=== PATIENT | female | born 2000 | race Caucasian/White ===

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

== ENCOUNTER 2018-09-24 21:02 | Emergency (ER) | payer OTHER ==
[~2018-09-24] VITALS: Ht 185.4 cm; Wt 127.0 kg
[~2018-09-24 21:02] MED LIST changes: +AMETHYST1 EACH PO; +Ativan0.5 MG PO; +Augmentin 875-1 EACH PO; +Citalopram HBr10 MG PO; +ONDA4ODT MM; +Zoloft25 MG PO; +Zoloft50 MG PO
[2018-09-24] MEDS ORDERED: ARIP10 PO (22:57)
[2018-09-24] MEDS ORDERED: OMEPRAZOLE20 MG PO (22:57)
[2018-09-24] MEDS ORDERED: SERT50 PO (22:57)
[2018-09-24] MEDS ORDERED: AMETHYST 90-201 EACH PO (22:58)
[2018-09-24 23:45] LABS: Source, Urine Clean Catch
[2018-09-24 23:47] LABS: Bilirubin, Urine Neg (Neg); Blood, Urine 1+ (Neg); Glucose Qualitative, Urine Neg (Neg); Ketones, Urine Neg (Neg); Leukocyte Esterase, Urine Neg (Neg); Nitrite, Urine Neg (Neg); Protein, Urine Neg (Neg); Urobilinogen, Urine NORM (Normal)
[2018-09-24 23:48] LABS: Appearance, Urine Clear (Clear); Color, Urine Yellow (P-Yellow)
[2018-09-24 23:53] LABS: Bacteria Mod /hpf; Red Blood Cells, Urine 0-2 /hpf (0-2); Squamous Epithelial Cells Not Seen /hpf (Few); White Blood Cells, Urine 0-2 /hpf (0-5)
[2018-09-25] MEDS ORDERED: Flagyl500 MG PO (00:51)
[2018-09-25] MEDS ORDERED: Vibramycin100 MG PO (00:51)
== END 2018-09-25 01:08 | disposition home or self-care (01) ==
LOC: ER 21:02
PROVIDERS: Physician Assistant
DX: N73.9 Female pelvic inflammatory disease, unspecified (principal); N94.10 Unspecified dyspareunia
CPT/HCPCS: 81001; 81025; 87086; 96372; 99284-25; A9270-GY; J0696

== ENCOUNTER 2018-09-28 21:15 | Emergency (ER) | payer OTHER ==
[~2018-09-28] VITALS: Ht 185.4 cm; Wt 127.0 kg
[~2018-09-28 21:15] MED LIST changes: +AMETHYST 90-201 EACH PO; +ARIP10 PO; +Flagyl500 MG PO; +OMEPRAZOLE20 MG PO; +SERT50 PO; +Vibramycin100 MG PO
[2018-09-28 22:29] LABS: Source, Urine Clean Catch
[2018-09-28 22:31] LABS: Bilirubin, Urine Neg (Neg); Blood, Urine 2+ (Neg); Glucose Qualitative, Urine Neg (Neg); Ketones, Urine 1+ (Neg); Leukocyte Esterase, Urine 2+ (Neg); Nitrite, Urine Neg (Neg); Protein, Urine 1+ (Neg); Specific Gravity, Urine 1.025 (1.003-1.022); Urobilinogen, Urine NORM (Normal)
[2018-09-28 22:46] LABS: Appearance, Urine Clear (Clear); Color, Urine Yellow (P-Yellow)
[2018-09-28 22:47] LABS: Bacteria Few /hpf; Calcium Oxalate Crystals Few /hpf; Mucus Light (0-Heavy); Squamous Epithelial Cells Few /hpf (Few)
[2018-09-28] MEDS ORDERED: IBUP800 PO (23:36)
== END 2018-09-28 23:57 | disposition home or self-care (01) ==
LOC: ER 21:15
PROVIDERS: Physician Assistant
DX: N73.0 Acute parametritis and pelvic cellulitis (principal); Z88.2 Allergy status to sulfonamides; Z88.5 Allergy status to narcotic agent; Z79.899 Other long term (current) drug therapy
CPT/HCPCS: 76830; 76856; 81001; 81025; 99284-25

== ENCOUNTER 2019-01-29 02:02 | Emergency (ER) | payer OTHER ==
[~2019-01-29] VITALS: Ht 185.4 cm; Wt 127.0 kg
[~2019-01-29 02:02] MED LIST changes: +IBUP800 PO
[2019-01-29] MEDS ORDERED: ABILIFY (03:00)
[2019-01-29] MEDS ORDERED: SERTRALINE (03:01)
[2019-01-29] MEDS ORDERED: OMEPRAZOLE20 MG (03:01)
[2019-01-29 03:13] LABS: Source, Urine Clean Catch
[2019-01-29 03:23] LABS: Bilirubin, Urine Neg (Neg); Blood, Urine 1+ (Neg); Glucose Qualitative, Urine Neg (Neg); Ketones, Urine Neg (Neg); Leukocyte Esterase, Urine Neg (Neg); Nitrite, Urine Neg (Neg); Protein, Urine Neg (Neg); Urobilinogen, Urine NORM (Normal)
[2019-01-29 03:31] LABS: Appearance, Urine Clear (Clear); Color, Urine Yellow (P-Yellow)
[2019-01-29 03:32] LABS: Bacteria Rare /hpf; Red Blood Cells, Urine 0-2 /hpf (0-2); Squamous Epithelial Cells Rare /hpf (Few); White Blood Cells, Urine 0-2 /hpf (0-5)
[2019-01-29 04:25] LABS: Calcium, Ionized (POC) 1.17 mmol/L (1.10-1.46); Chloride (POC) 105 mmol/L (98-108); Creatinine (POC) 0.7 mg/dL (0.6-1.0); Glucose (ISTAT POC) 98 mg/dL (70-99); Hemoglobin (POC) 13.6 g/dL (12.0-16.0); Potassium (POC) 3.9 mmol/L (3.5-5.5); Sodium (POC) 140 mmol/L (135-148); Total CO2 (POC) 24 mmol/L (21-32)
== END 2019-01-29 04:45 | disposition home or self-care (01) ==
LOC: ER 02:02
PROVIDERS: Emergency Medicine
DX: R11.2 Nausea with vomiting, unspecified (principal); Z88.2 Allergy status to sulfonamides; Z88.5 Allergy status to narcotic agent; Z79.899 Other long term (current) drug therapy; K21.9 Gastro-esophageal reflux disease without esophagitis; F32.9 Major depressive disorder, single episode, unspecified
CPT/HCPCS: 36415; 80047; 81001; 81025; 85014; 99283; A9270-GY

== ENCOUNTER 2019-02-24 18:45 | Emergency (ER) | payer OTHER ==
[~2019-02-24] VITALS: Ht 185.4 cm; Wt 127.0 kg
[~2019-02-24 18:45] MED LIST changes: +ABILIFY; +OMEPRAZOLE20 MG; +SERTRALINE
[2019-02-24] MEDS ORDERED: Polytrim Eye Dr10 ML BOTHEYES (19:34)
== END 2019-02-24 19:45 | disposition home or self-care (01) ==
LOC: ER 18:45
DX: H10.021 Other mucopurulent conjunctivitis, right eye (principal); Z88.2 Allergy status to sulfonamides; Z88.5 Allergy status to narcotic agent
CPT/HCPCS: 99283

== ENCOUNTER 2019-03-02 19:28 | Emergency (ER) | payer OTHER ==
[~2019-03-02] VITALS: Ht 185.4 cm; Wt 127.0 kg
[~2019-03-02 19:28] MED LIST changes: +Polytrim Eye Dr10 ML BOTHEYES
[2019-03-02] MEDS ORDERED: HYDHCL25 PO (19:59)
== END 2019-03-02 20:07 | disposition home or self-care (01) ==
LOC: ER 19:28
DX: L50.9 Urticaria, unspecified (principal); Z88.2 Allergy status to sulfonamides; Z88.5 Allergy status to narcotic agent
CPT/HCPCS: 99283; J1100

== ENCOUNTER 2019-03-27 20:34 | Emergency (ER) | payer OTHER ==
[~2019-03-27] VITALS: Ht 185.4 cm; Wt 127.0 kg
[~2019-03-27 20:34] MED LIST changes: +HYDHCL25 PO
[2019-03-27] MEDS ORDERED: DICL75ER PO (22:37)
[2019-03-28] MEDS ORDERED: Cyclobenzaprine5 MG PO (01:40)
== END 2019-03-27 22:56 | disposition home or self-care (01) ==
LOC: ER 20:34
DX: M25.511 Pain in right shoulder (principal); J06.9 Acute upper respiratory infection, unspecified; Z88.2 Allergy status to sulfonamides; Z88.5 Allergy status to narcotic agent
CPT/HCPCS: 73030; 99283-25

== ENCOUNTER 2019-03-27 23:51 | Emergency (ER) | payer OTHER ==
[~2019-03-27] VITALS: Ht 185.4 cm; Wt 127.0 kg
[~2019-03-27 23:51] MED LIST changes: +DICL75ER PO
[2019-03-28] MEDS ORDERED: Cyclobenzaprine5 MG PO (01:40)
== END 2019-03-28 01:50 | disposition home or self-care (01) ==
LOC: ER 23:51
DX: L29.8 Other pruritus (principal); T39.395A Adverse effect of other nonsteroidal anti-inflammatory drugs [NSAID], initial encounter; Z88.8 Allergy status to other drugs, medicaments and biological substances; Z88.2 Allergy status to sulfonamides; Z88.5 Allergy status to narcotic agent
CPT/HCPCS: 94640; 96361; 96374; 96375; 99284; J1200; J2930; J7030

== ENCOUNTER 2019-04-01 01:48 | Emergency (ER) | payer OTHER ==
[~2019-04-01] VITALS: Ht 182.9 cm; Wt 127.0 kg
[~2019-04-01 01:48] MED LIST changes: +Cyclobenzaprine5 MG PO
[2019-04-01] MEDS ORDERED: ERYT1OIN BOTHEYES (02:36)
[2019-04-01] MEDS ORDERED: ALBU90OI INH (02:41)
== END 2019-04-01 03:10 | disposition home or self-care (01) ==
LOC: ER 01:48
DX: H10.023 Other mucopurulent conjunctivitis, bilateral (principal); J40 Bronchitis, not specified as acute or chronic
CPT/HCPCS: 99282; J1100

== ENCOUNTER 2019-04-03 22:59 | Emergency (ER) | payer OTHER ==
[~2019-04-03] VITALS: Ht 185.4 cm; Wt 127.0 kg
[~2019-04-03 22:59] MED LIST changes: +ALBU90OI INH; +ERYT1OIN BOTHEYES
[2019-04-03 23:20] LABS: BASOPHILS ABSOLUTE AUTO 0.07 K/mm3 (0.00-0.23); BASOPHILS PERCENT AUTO 1 % (0-2); EOSINOPHILS ABSOLUTE AUTO 0.37 K/mm3 (0.00-0.68); EOSINOPHILS PERCENT AUTO 3 % (0-6); Hemoglobin 14.5 g/dL (11.5-16.0); IMMATURE GRAN ABSOLUTE AUTO 0.06 K/mm3 (0.00-0.10); IMMATURE GRAN PERCENT AUTO 1 % (0-1); LYMPHOCYTES ABSOLUTE AUTO 3.78 K/mm3 (0.84-5.20); LYMPHOCYTES PERCENT AUTO 32 % (21-46); MONOCYTES ABSOLUTE AUTO 0.81 K/mm3 (0.16-1.47); MONOCYTES PERCENT AUTO 7 % (4-13); Mean Corpuscular HGB 26.4 pg (26.0-34.0); Mean Corpuscular HGB Conc 32.2 g/dL (31.5-36.5); Mean Corpuscular Volume 82 fL (80-100); Mean Platelet Volume 10.2 fL (9.1-12.4); NEUTROPHILS ABSOLUTE AUTO 6.84 K/mm3 (1.96-9.15); NEUTROPHILS PERCENT AUTO 57 % (41-73); Platelet Count 364 K/mm3 (150-400); RDW Standard Deviation 41.7 fL (35.1-46.3); Red Blood Cell Count 5.49 M/mm3 (3.80-5.20); White Blood Cell Count 11.93 K/mm3 (4.00-11.30)
[2019-04-03 23:28] LABS: Source, Urine Clean Catch
[2019-04-03 23:30] LABS: Bilirubin, Urine Neg (Neg); Blood, Urine Neg (Neg); Glucose Qualitative, Urine Neg (Neg); Ketones, Urine Neg (Neg); Leukocyte Esterase, Urine Neg (Neg); Nitrite, Urine Neg (Neg); Protein, Urine Neg (Neg); Urobilinogen, Urine NORM (Normal)
[2019-04-03 23:31] LABS: Appearance, Urine Clear (Clear); Color, Urine Yellow (P-Yellow)
[2019-04-03 23:36] LABS: Influenza A Negative (NEGATIVE); Influenza B Negative (NEGATIVE)
[2019-04-03 23:38] LABS: Alanine Aminotransfer (ALT/SGP 55 U/L (12-78); Albumin, Blood 3.8 g/dL (3.4-5.0); Alk Phos 81 U/L (50-136); Anion Gap 8 mmol/L (6-16); Aspartate Aminotrans (AST/SGOT 26 U/L (12-37); Bilirubin, Total 0.3 mg/dL (0.1-1.0); Blood Urea Nitrogen 11 mg/dL (8-24); CO2, Blood 22 mmol/L (21-32); Calcium, Blood 8.6 mg/dL (8.5-10.1); Chloride, Blood 107 mmol/L (98-108); Creatinine, Blood 0.58 mg/dL (0.40-1.00); Globulin, Blood 3.7 g/dL (2.2-4.0); Glomerular Filtration Rate >60 (60-); Glucose, Blood 103 mg/dL (70-99); Potassium, Blood 3.9 mmol/L (3.5-5.5); Sodium, Blood 137 mmol/L (136-145); Total Protein, Blood 7.5 g/dL (6.4-8.2)
[2019-04-04] MEDS ORDERED: Zofran4 MG PO (00:07)
== END 2019-04-04 00:18 | disposition home or self-care (01) ==
LOC: ER 22:59
PROVIDERS: Emergency Medicine
DX: R11.2 Nausea with vomiting, unspecified (principal); Z88.8 Allergy status to other drugs, medicaments and biological substances; Z88.5 Allergy status to narcotic agent; Z88.2 Allergy status to sulfonamides; Z88.1 Allergy status to other antibiotic agents
CPT/HCPCS: 36415; 80053; 81003; 85025; 87804; 96374; 99283-25; J2405

== ENCOUNTER 2020-05-23 00:30 | Emergency (ER) | payer OTHER ==
[~2020-05-23] VITALS: Ht 185.4 cm; Wt 131.5 kg
[~2020-05-23 00:30] MED LIST changes: +Zofran4 MG PO
== END 2020-05-23 02:57 | disposition home or self-care (01) ==
LOC: ER 00:30
DX: T40.7X1A Poisoning by cannabis (derivatives), accidental (unintentional), initial encounter (principal); R11.2 Nausea with vomiting, unspecified; R42 Dizziness and giddiness; R06.02 Shortness of breath; Z88.2 Allergy status to sulfonamides; Z88.6 Allergy status to analgesic agent; Z88.5 Allergy status to narcotic agent; Z88.8 Allergy status to other drugs, medicaments and biological substances
CPT/HCPCS: 36415; 99284

== ENCOUNTER 2020-07-22 23:28 | Emergency (ER) | payer OTHER ==
[~2020-07-22] VITALS: Ht 185.4 cm; Wt 131.5 kg
== END 2020-07-23 03:23 | disposition home or self-care (01) ==
LOC: ER 23:28
DX: G56.22 Lesion of ulnar nerve, left upper limb (principal); Z88.6 Allergy status to analgesic agent; Z88.5 Allergy status to narcotic agent; Z88.2 Allergy status to sulfonamides; Z88.8 Allergy status to other drugs, medicaments and biological substances; Z88.1 Allergy status to other antibiotic agents
CPT/HCPCS: 29125; 99283

== ENCOUNTER 2020-07-27 23:25 | Emergency (ER) | payer OTHER ==
[~2020-07-27] VITALS: Ht 188 cm; Wt 131.5 kg
[2020-07-27] MEDS ORDERED: AMETHYST PO (23:35)
[2020-07-28] MEDS ORDERED: Prednisone20 MG PO (01:35)
== END 2020-07-28 01:51 | disposition home or self-care (01) ==
LOC: ER 23:25
DX: G56.20 Lesion of ulnar nerve, unspecified upper limb (principal); Z88.2 Allergy status to sulfonamides; Z88.5 Allergy status to narcotic agent; Z88.6 Allergy status to analgesic agent; Z79.899 Other long term (current) drug therapy
CPT/HCPCS: 99282; A9270; J7512

== ENCOUNTER 2020-08-05 01:43 | Emergency (ER) | payer OTHER ==
[~2020-08-05] VITALS: Ht 180.3 cm; Wt 127.0 kg
[~2020-08-05 01:43] MED LIST changes: +AMETHYST PO; +Prednisone20 MG PO
== END 2020-08-05 04:42 | disposition home or self-care (01) ==
LOC: ER 01:43
DX: G56.22 Lesion of ulnar nerve, left upper limb (principal); Z88.2 Allergy status to sulfonamides; Z88.8 Allergy status to other drugs, medicaments and biological substances; Z88.5 Allergy status to narcotic agent
CPT/HCPCS: 99283; A9270